=== PATIENT | female | born 1955 | race Caucasian/White ===

== ENCOUNTER → 2020-07-25 | Outpatient (CLI) | payer OTHER ==
[~2020-07-25] MED LIST: ACIDOPHILUS1 EACH PO; CEFTIN 250 MG250 MG PO; COUMADIN 5 MG TA5 M1 PO; ENOXAPARIN80 MG/0.1 SUBQ; FLAGYL500 M1 PO; FLECAINIDE ACET50 M1 PO; LEXAPRO 10 MG T10 M1 PO; MAG-OXIDE400 MG PO; POTASSIUM20 PO; PROTONIX40 M1 PO; TENORMIN25 MG PO; TOPROL XL25 MG PO
== END ==
LOC: SJCVC 13:30
PROVIDERS: ATTEND Internal Medicine Cardiovascular Disease
DX: R00.1 Bradycardia, unspecified (principal); I48.0 Paroxysmal atrial fibrillation; R55 Syncope and collapse; I49.5 Sick sinus syndrome

== ENCOUNTER → 2020-08-16 | Outpatient (CLI) | payer OTHER ==
[~2020-08-16] MED LIST changes: +ALENDRONATE SOD70 MG PO; +BYSTOLIC10 MG PO; +ELIQUIS5 MG PO; +GABAPENTIN100 MG PO; +NEURONTIN300 MG PO; +OMEPRAZOLE 20 M20 M1 PO
== END ==
LOC: SJCVCIMAG
PROVIDERS: ATTEND Internal Medicine Cardiovascular Disease
DX: I08.8 Other rheumatic multiple valve diseases (principal); I48.91 Unspecified atrial fibrillation; I48.92 Unspecified atrial flutter; I49.5 Sick sinus syndrome; Z79.899 Other long term (current) drug therapy; Z87.891 Personal history of nicotine dependence

== ENCOUNTER 2020-08-26 23:58 | Observation (INO) | payer OTHER ==
[~2020-08-26] VITALS: Ht 165.1 cm; Wt 87.1 kg
[~2020-08-26 23:58] MED LIST changes: -ALENDRONATE SOD70 MG PO; -BYSTOLIC10 MG PO; -ELIQUIS5 MG PO; -GABAPENTIN100 MG PO; -NEURONTIN300 MG PO; -OMEPRAZOLE 20 M20 M1 PO
[2020-08-26 23:59] VITALS: BP 126/70
[2020-08-27] MEDS ORDERED: ELIQUIS5 MG PO (00:11)
[2020-08-27] MEDS ORDERED: ALENDRONATE SOD70 MG PO (00:12)
[2020-08-27] MEDS ORDERED: BYSTOLIC10 MG PO (00:15)
[2020-08-27] MEDS ORDERED: OMEPRAZOLE 20 M20 M1 PO (00:16)
[2020-08-27] MEDS ORDERED: GABAPENTIN100 MG PO (00:17)
[2020-08-27] MEDS ORDERED: NEURONTIN300 MG PO (00:18)
--- NOTE | 2020-08-27 00:26 | NUR ---
RIGHT ARM BP 132/50 LEFT ARM BP 131/62
[2020-08-27 00:33] LABS: BASOPHILS 0.5 % (0.0-2.0); EOSINOPHILS 1.7 % (0.0-3.0); HEMATOCRIT 37.4 % (37.0-47.0); HEMOGLOBIN 12.5 gm/dL (12.0-15.0); LYMPHOCYTES 24.5 % (24.0-44.0); MCH 30.1 pg (26.0-34.0); MCHC 33.6 g/dL (28.0-37.0); MCV 89.7 fL (80.0-100.0); PLATELET COUNT 204 thou/uL (150-400); POLYS 65.3 % (36.0-66.0); RBC 4.17 mil/uL (4.20-5.00); RDW 13.5 % (10.5-14.5); WBC 7.7 thou/uL (4.0-11.0)
[2020-08-27 00:46] LABS: ANION GAP 10 mmol/L (7-16); BUN 20 mg/dL (7-18); CALCIUM 9.2 mg/dL (8.5-10.1); CHLORIDE 104 mmol/L (98-107); CO2 26 mmol/L (21-32); CREATININE 1.1 mg/dL (0.6-1.0); GLUCOSE 126 mg/dL (74-106); POTASSIUM 3.6 mmol/L (3.5-5.1); SODIUM 140 mmol/L (136-145)
[2020-08-27 00:56] LABS: ALBUMIN 3.3 g/dL (3.4-5.0); MAGNESIUM 1.8 mg/dL (1.8-2.4); SGOT 20 U/L (15-37); SGPT 23 U/L (30-65); TOTAL BILIRUBIN 0.3 mg/dL (0.2-1.0); TOTAL PROTEIN 6.9 g/dL (6.4-8.2); TROPONIN-I <0.06 ng/mL (<0.06)
[2020-08-27 00:57] LABS: PROTIME 10.3 Seconds (9.3-11.4)
[2020-08-27 05:51] LABS: CHOLESTEROL 160 mg/dL (<200); HDL CHOLESTEROL 35 mg/dL (>40); LDL CHOLESTEROL 100 mg/dL (<100); TC:HDL 4.6 Ratio (Not establshd); TRIGLYCERIDE 126 mg/dL (<150); VLDL 25 mg/dL (<40)
[2020-08-27 05:52] LABS: SERUM ASSESSMENT Clear
[2020-08-27 16:30] VITALS: BP 118/62
[2020-08-27 17:08] VITALS: BP 123/82
[2020-08-27 17:38] VITALS: BP 114/65
[2020-08-27 17:52] VITALS: BP 118/62
--- NOTE | 2020-08-27 19:36 | NUR ---
ASSUMED CARE OF PT AT APPROX 1745 FROM ER D/T CHEST PAIN. PT SETTLED IN ROOM, ADMISSION ASSESSMENTS, HISTORY AND EDUCATION COMPLETE. NO C/O PAIN OR DISTRESS AT THIS TIME. PLAN FOR ECHO TOMORROW. WILL CONTINUE TO MONITOR AND FOLLW POC.
[2020-08-27 20:59] VITALS: BP 111/53
[2020-08-28 00:15] VITALS: BP 135/71
[2020-08-28 02:05] LABS: GLYCOHEMOGLOBIN (HGB A1C) 6.1 % (4.8-5.6)
[2020-08-28 03:54] LABS: HEMATOCRIT 34.4 % (37.0-47.0); HEMOGLOBIN 11.5 gm/dL (12.0-15.0); MCH 30.1 pg (26.0-34.0); MCHC 33.4 g/dL (28.0-37.0); MCV 89.9 fL (80.0-100.0); RBC 3.82 mil/uL (4.20-5.00); RDW 13.4 % (10.5-14.5); WBC 4.9 thou/uL (4.0-11.0)
[2020-08-28 04:28] LABS: ANION GAP 11 mmol/L (7-16); BUN 15 mg/dL (7-18); CALCIUM 8.3 mg/dL (8.5-10.1); CHLORIDE 108 mmol/L (98-107); CO2 24 mmol/L (21-32); GLUCOSE 133 mg/dL (74-106); SODIUM 143 mmol/L (136-145); TROPONIN-I <0.06 ng/mL (<0.06)
--- NOTE | 2020-08-28 05:19 | NUR ---
PATIENT SLEPT THROUGH SOME OF THE NIGHT. A&OX4. MEDS GIVEN PER NOV. NO COMPLAINTS OF CHEST PAIN. SR ON THE MONITOR. UP AD ANAT TO BR; STEADY GAIT. ADMISSION PROCESS COMPLETE. ECHO THIS MORNING. CONTINUING TO ASSESS CLOSELY ACCORDING TO POC.
[2020-08-28 05:46] VITALS: BP 129/62
[2020-08-28 07:30] VITALS: BP 139/69
--- NOTE | 2020-08-28 10:17 | NUR ---
CONSULT [id number] WAS COMPLETED BY THIS SOCIAL INSURANCE ANALYST.
[2020-08-28 12:49] VITALS: BP 139/69
[2020-08-28 13:00] VITALS: BP 132/70
--- NOTE | 2020-08-28 13:49 | NUR ---
DISCHARGING TO HOME. DR. MACDONALD HAS SEEN. LESLIE CALLED INTO HER PHARMACY. DISCHARGE INSTRUCTIONS GIVEN.
--- NOTE | 2020-08-31 11:24 | EKG ---
[facility] [address] [place] [address] ELECTROCARDIOGRAM REPORT Name: JIMYAMILEXRENATE ALONSO Room #: 211-P [facility] Margarita HarpRVictor Hugo#: [id number] Admission: 08/27/20 Attend Phys: Jeffry Nguyen MD Discharge: 08/28/20 Date of : 53 Report #: [id number] <ELECTRONICALLY SIGNED> By: Dionte Lopez MD, FACC 08/28/20 0721 0004 0004 Dionte Lopez MD, FACC /EPI
== END 2020-08-28 14:38 | disposition home or self-care (01) ==
LOC: ER 23:58 → 2N 08-27 01:14 → EROBS 08-27 01:14 → 2N 08-27 01:14 → EROBS 08-27 09:38 → 2N 08-27 17:49
PROVIDERS: Emergency Medicine; Nurse Practitioner Family; ADMIT Internal Medicine; ATTEND Internal Medicine
DX: R07.89 Other chest pain (principal); I10 Essential (primary) hypertension; Z20.828 Contact with and (suspected) exposure to other viral communicable diseases; K21.9 Gastro-esophageal reflux disease without esophagitis; I48.91 Unspecified atrial fibrillation; G89.29 Other chronic pain; M19.90 Unspecified osteoarthritis, unspecified site; G62.9 Polyneuropathy, unspecified; Z85.3 Personal history of malignant neoplasm of breast; Z86.711 Personal history of pulmonary embolism; Z90.49 Acquired absence of other specified parts of digestive tract; Z90.710 Acquired absence of both cervix and uterus; Z87.891 Personal history of nicotine dependence
CPT/HCPCS: 10081

== ENCOUNTER → 2020-11-06 | Outpatient (CLI) | payer OTHER ==
[~2020-11-06] MED LIST changes: +ALENDRONATE SOD70 MG PO; +BYSTOLIC10 MG PO; +ELIQUIS5 MG PO; +GABAPENTIN100 MG PO; +NEURONTIN300 MG PO; +OMEPRAZOLE 20 M20 M1 PO
== END ==
LOC: LAB 08:38
PROVIDERS: ATTEND Internal Medicine Cardiovascular Disease
DX: Z01.812 Encounter for preprocedural laboratory examination (principal); Z20.822 Contact with and (suspected) exposure to COVID-19

== ENCOUNTER → 2020-11-06 | Outpatient (CLI) | payer OTHER ==
[~2020-11-06] MED LIST changes: +CALCIUM 500-VI1 EAC1 PO; +VITAMIN C500 M2 PO
== END ==
LOC: CAT 10-23 09:55
PROVIDERS: ATTEND Internal Medicine Cardiovascular Disease
DX: I48.91 Unspecified atrial fibrillation (principal); M47.814 Spondylosis without myelopathy or radiculopathy, thoracic region; Z90.49 Acquired absence of other specified parts of digestive tract

== ENCOUNTER 2020-11-10 06:35 | Observation (INO) | payer OTHER ==
[2020-11-06 10:51] LABS: HEMATOCRIT 40.2 % (37.0-47.0); HEMOGLOBIN 13.5 gm/dL (12.0-15.0); MCH 29.8 pg (26.0-34.0); MCHC 33.5 g/dL (28.0-37.0); MCV 88.9 fL (80.0-100.0); RBC 4.53 mil/uL (4.20-5.00); RDW 13.2 % (10.5-14.5); WBC 6.3 thou/uL (4.0-11.0)
[2020-11-06 11:04] LABS: CALCIUM 8.9 mg/dL (8.5-10.1); CREATININE 1.1 mg/dL (0.6-1.0)
[~2020-11-10] VITALS: Ht 165.1 cm; Wt 85.7 kg
[2020-11-10] VITALS (8 sets, daily range): BP systolic 124–139; BP diastolic 61–82
--- NOTE | ~2020-11-10 | P ---
[facility] [place] [address] PROCEDURE REPORT Name: YAMILEX FERNANDEZ Room #: 215-P [facility] M..#: [id number] Admission: 11/10/20 Attend Phys: Patric Davis MD Discharge: Date of : 53 Report #: [id number] THIS REPORT FOR: cc: FAM - Family physician unknown FAM - Family physician unknown David Davis MD ~ DATE OF SERVICE: 11/10/2020 PREOPERATIVE DIAGNOSES: 1. Atrial fibrillation. 2. Atrial flutter. POSTOPERATIVE DIAGNOSES: 1. Atrial fibrillation, atrial flutter. 2. Focal atrial tachycardia. HISTORY: The patient is a 64-year-old female with a history of recurrent paroxysmal atrial fibrillation. She was previously on flecainide therapy, but developed significant sick sinus syndrome, for this and this was discontinued. She is here for AFib ablation. PROCEDURES PERFORMED: 1. Atrial fibrillation ablation, CPT code 05791. 2. 3D mapping, CPT code 48527. 3. Intracardiac echo, CPT code 24593. 4. Focal ablation, CPT code 94917. 5. Second pathway ablation, CPT code 00214. ANESTHESIA: The patient underwent general anesthesia. No anesthesia related complications. DESCRIPTION OF PROCEDURE: The patient with informed consent, we discussed the details of the procedure including the risks, which include but not limited to bleeding, vascular damage, cardiac perforation, stroke and VA. She understood these risks and was willing to proceed. The patient was brought to the EP laboratory in a fasting nonsedated state, prepped and draped in a sterile fashion. I obtained access to the right femoral vein x 3, placing an 8, 9 and 7-Danish short sheath and under fluoroscopy I placed a decapolar catheter using the coronary sinus and ICE catheter into the right atrium. Using intracardiac ultrasound, I created a 3D geometry of the left atrium. This was merged with the cardiac CT scan. The patient had evidence of 2 left and 2 right pulmonary veins. Next, the patient was systemically heparinized. The transseptal was performed using SL1 sheath and a [place] needle and this was straightforward. I then exchanged for the [facility] [address] [place] [address] PROCEDURE REPORT Name: YAMILEX FERNANDEZ Room #: 215-P [facility] Margarita [place]#: [id number] Admission: 11/10/20 Attend Phys: Patric Davis MD Discharge: Date of : 53 Report #: [id number] sheath, placed this in the left atrium. Via the Lasso catheter, we created a detailed 3D geometry of the left atrium and then we started isolating the pulmonary veins. The left superior pulmonary vein underwent a 4-minute, followed by 3-minute freeze and the vein isolated at 26 seconds during the second freeze. Left inferior pulmonary vein underwent a 4-minute freeze isolating in 30 seconds. The right superior pulmonary vein underwent a 3-minute freeze and isolated at 35 seconds. The right inferior pulmonary vein underwent a 150-second freeze and isolated at 35 seconds and we came off early because of the cool temps. I then created a 3D geometry of the left atrium and as we were creating this, we showed that there was now isolation of all 4 pulmonary veins, but the patient went into an atrial tachycardia. This was slow at about 570 milliseconds, but it would terminate with catheter manipulation and then was easily inducible with atrial burst pacing. 3D MAPPING AND ABLATION OF FOCAL ATRIAL TACHYCARDIA: Next, we decided to map this atrial tachycardia. We started by mapping on the left atrium. It was clearly late at this site. Therefore, I went to the right atrium with the Lasso catheter and we were quickly able to show that there was a nice sal tachycardia at this location. It would terminate when I would manipulate my catheter at this region, but was easily re-inducible either with pacing or would induce itself. Therefore, I took a [employer] Thermo[employer] ablation catheter at the earliest site and ablation was performed at 35 cook. At the first site of ablation, there was termination. I performed additional ablation all along this region as there were fractionated atrial signals at this location. Therefore, a post-ablation EP study was performed. Aggressive atrial burst pacing was performed down to 300 milliseconds and this atrial tachycardia was rendered non-inducible. ATRIAL FLUTTER ABLATION: Given the patient's history of prior atrial flutter, we decided to perform atrial flutter ablation along the cavotricuspid isthmus, ablation was performed at 40 cook, continuous drag lesion was performed and a transisthmus conduction time changed from 60 to 100 milliseconds. Additional ablation was performed could not get it to stretch out more than this. As such, the procedure was concluded. Using intracardiac ultrasound, I verified there was no pericardial effusion and then catheters and sheaths were pulled out after the patient received systemic protamine. Hemostasis was obtained. The patient awoke neurologically and hemodynamically intact. No complications. No significant bleeding. CONCLUSIONS: 1. Successful atrial fibrillation ablation with isolation of the pulmonary veins. 2. Successful ablation of a focal atrial tachycardia arising from the mid [facility] [address] [place] [address] PROCEDURE REPORT Name: YAMILEX FERNANDEZ Room #: 215-P [facility] LoydVictor Hugo#: [id number] Admission: 11/10/20 Attend Phys: Patric Davis MD Discharge: Date of : 53 Report #: [id number] sal terminalis just lateral to the right atrial appendage. 3. Successful atrial flutter ablation. By: 1158 192 David Davis MD /nt
[~2020-11-10 06:35] MED LIST changes: -CALCIUM 500-VI1 EAC1 PO; -VITAMIN C500 M2 PO
[2020-11-10 07:25] LABS: BASOPHILS 0.4 % (0.0-2.0); PLATELET COUNT 211 thou/uL (150-400)
[2020-11-10 07:26] LABS: ABSOLUTE NEUTROPHILS 5.3 thou/uL (1.4-8.2); HEMATOCRIT 41.9 % (37.0-47.0); HEMOGLOBIN 13.9 gm/dL (12.0-15.0); LYMPHOCYTES 27.3 % (24.0-44.0); MCH 29.6 pg (26.0-34.0); MCHC 33.2 g/dL (28.0-37.0); MCV 89.2 fL (80.0-100.0); MONOCYTES 8.1 % (1.0-8.0); POLYS 62.2 % (36.0-66.0); RDW 13.4 % (10.5-14.5); WBC 8.5 thou/uL (4.0-11.0)
[2020-11-10 07:36] LABS: CREATININE 1.3 mg/dL (0.6-1.0)
[2020-11-10 07:42] LABS: ALBUMIN 3.6 g/dL (3.4-5.0); TOTAL BILIRUBIN 0.4 mg/dL (0.2-1.0); TOTAL PROTEIN 7.2 g/dL (6.4-8.2)
[2020-11-10 08:01] LABS: PROTIME 9.5 Seconds (9.3-11.4)
--- NOTE | 2020-11-10 13:35 | EKG ---
[place] [address] [facility] [place] [address] ELECTROCARDIOGRAM REPORT Name: YAMILEX FERNANDEZ [facility] [id number] Admission: 11/10/20 Attend Phys: Patric Davis MD Discharge: Date of : 53 Report #: [id number] [facility] Test Date: 2020-11-10 Test Time: 12:57:11 Pat Name: YAMILEX FERNANDEZ Department: Room: Gender: F Senior Cost Estimator: : 1955 Requested By: Patric Davis Order Number: [id number] MD: Dionte Lopez Measurements Intervals [place] Rate: 77 P: 67 ID: 188 QRS: -18 QRSD: 98 T: 179 QT: 410 QTc: 465 Interpretive Statements Sinus rhythm Borderline left axis deviation Abnormal R-wave progression, early transition Abnrm T, consider ischemia, anterolateral lds Compared to ECG 08/27/2020 00:04:11 Possible ischemia now present Atrial premature complex(es) no longer present T-wave abnormality no longer present Electronically Signed On 11-10-2020 13:35:04 BARBER SHOP MANAGER by Dionte Lopez [email or web address] <ELECTRONICALLY SIGNED> By: Dionte Lopez MD, FACC 11/10/20 1335 1257 1257 Dionte Lopez MD, [facility] /EPI
[2020-11-10] MEDS ORDERED: CALCIUM 500-VI1 EAC1 PO (15:32)
[2020-11-10] MEDS ORDERED: VITAMIN C500 M2 PO (15:32)
--- NOTE | 2020-11-10 19:30 | NUR ---
PT. ARRIVED AT THE FLOOR AROUND AROUND 1500; PT. AOXE; NO C/O PAIN; SR ON THE MONITOR; ON BED REST; EDUCATED ABOUT BED REST UNTIL 1730; [facility]; EDUCATED ABOUT HOLDING PRESSURE IF COUGHING; [facility]; EDUCATED ABOUT GOALS THROUGH THE AFTERNOON; [facility]; D/C [place] AT 1800; EDUCATED ABOUT CALLING BEFORE GETTING UP FROM BED THE FIRST TIME SINCE BEING ON BED REST FOR LONG TIME; [facility]; ADMISSION PERFORMED; ASSESSMENT CHARGED; FOLLOWING POC; PASSED ON REPORT;
[2020-11-11 00:18] VITALS: BP 120/74
[2020-11-11 04:54] VITALS: BP 119/52
[2020-11-11 08:05] VITALS: BP 107/69
[2020-11-11 10:21] VITALS: BP 107/69
--- NOTE | 2020-11-11 11:29 | NUR ---
ASSUMED CARE SHIFT CHANGE. ASSESSMENT CHARTED.MEDS GIVEN DENIES PAIN. R GROIN SITE CDI NO HEMATOMA. DC INSTRUCTIONS REVIEWED WITH PT COMMUNICATES UNDERSTANDING. PT LEFT UNIT WITH ALL BELONGINGS.
--- NOTE | 2020-11-12 14:08 | EKG ---
[address] [address] ELECTROCARDIOGRAM REPORT Name: YAMILEX FERNANDEZ Room #: 215-[facility]#: [id number] Admission: 11/10/20 Attend Phys: Patric Davis MD Discharge: 11/11/20 Date of : 53 Report #: [id number] [facility] Test Date: 2020-11-11 Test Time: 07:15:13 Pat Name: YAMILEX FERNANDEZ Department: Room: [facility] Gender: F Die Hardener: LUL : 1955 Requested By: Patric Davis Order Number: [id number] MD: Bryant Elam Measurements Intervals [place] Rate: 79 P: 72 WV: 204 QRS: -1 QRSD: 97 T: 144 QT: 476 QTc: 546 Interpretive Statements Sinus rhythm Abnormal R-wave progression, early transition Nonspecific T abnrm, anterolateral leads Prolonged QT interval Compared to ECG 11/10/2020 12:57:11 Prolonged QT interval now present T wave abnormality is less pronounced Electronically Signed On 11-12-2020 14:07:54 ASSEMBLER TESTER by Bryant Elam [email or web address] <ELECTRONICALLY SIGNED> By: Bryant Elam MD, [facility] 11/12/20 1407 4 Bryant Elam MD, [facility] /EPI
== END 2020-11-11 11:00 | disposition home or self-care (01) ==
LOC: CATH 06:35 → 2N 15:18
PROVIDERS: ADMIT Internal Medicine Cardiovascular Disease; ATTEND Internal Medicine Cardiovascular Disease
DX: I48.91 Unspecified atrial fibrillation (principal); I48.92 Unspecified atrial flutter; K21.9 Gastro-esophageal reflux disease without esophagitis; I11.0 Hypertensive heart disease with heart failure; R55 Syncope and collapse; F17.200 Nicotine dependence, unspecified, uncomplicated; Z86.711 Personal history of pulmonary embolism; Z79.01 Long term (current) use of anticoagulants; Z79.899 Other long term (current) drug therapy
CPT/HCPCS: 62110; 62900; 70005

== ENCOUNTER → 2021-03-30 | Outpatient (CLI) | payer OTHER ==
[~2021-03-30] MED LIST changes: +CALCIUM 500-VI1 EAC1 PO; +VITAMIN C500 M2 PO
--- NOTE | 2021-04-03 13:43 | P ---
[facility] Tanya [place] [address] PROCEDURE REPORT Name: YAMILEX FERNANDEZ Room #: [facility]#: [id number] Admission: 03/30/21 Attend Phys: Patric Davis MD Discharge: Date of : 53 Report #: [id number] THIS REPORT FOR: cc: OTIS CONTRERAS [facility] - family physician/PCP Patric Davis MD ~ DATE OF SERVICE: 03/30/2021 PREOPERATIVE DIAGNOSIS: Presyncope. POSTOPERATIVE DIAGNOSIS: Presyncope. PROCEDURE: Implantable loop recorder insertion. DESCRIPTION OF PROCEDURE: The patient underwent informed consent. She was prepped and draped in a standard fashion. I injected lidocaine at the incision site. Incision was made. Device injected, tested and found to be functioning normally. A single suture was performed. Surgical glue and a dressing was placed. There were no procedural-related complications. Implanted device was a Medtronic model number 90597, serial number [id number]. CONCLUSION: Successful implantation of implantable loop recorder. <ELECTRONICALLY SIGNED> By: Patric Davis MD 04/03/21 1343 1001 2332 Patric Davis MD /nt
== END | disposition home or self-care (01) ==
LOC: CATH 07:16
PROVIDERS: ATTEND Internal Medicine Cardiovascular Disease
DX: R55 Syncope and collapse (principal); Z79.899 Other long term (current) drug therapy; Z79.01 Long term (current) use of anticoagulants; Z91.041 Radiographic dye allergy status

== ENCOUNTER 2021-04-04 13:54 | Inpatient (IN) | payer OTHER ==
[~2021-04-04] VITALS: Ht 165.1 cm; Wt 83.6 kg
--- NOTE | ~2021-04-04 | EMS ---
[address] [address] EMS Patient Care Report Name: YAMILEX FERNANDEZ Room #: REG JOSE [place]#: [id number] Admission: 04/04/21 Attend Phys: Discharge: Date of : 53 Report #: [id number] THIS REPORT FOR: //name// Report Transmitted: 04/04/2021 15:01 EMS Care Summary [facility] MED-ACT Incident -[id number] @ 04/04/2021 13:18 Incident Location [address] [place] [address] Patient YAMILEX FERNANDEZ Female, 65 Years 1955 Patient Address [address] [place] [address] Patient History Syncope,Atrial Fibrillation, Patient Allergies No known allergies, Patient Medications None Reported, Chief Complaint I have a pressure on my chest Disposition Transported No Lights/Nitro Dispatch Reason Chest Pain (Non-Traumatic) Transported To [facility] Narrative Arrived on scene to find a 65 y/o female who was sitting on a clinic chair located in exam room of orthopedic facility. on scene reports that the pt [facility] [address] [place] [address] EMS Patient Care Report Name: YAMILEX FERNANDEZ Room #: REG Rubén#: [id number] Admission: 04/04/21 Attend Phys: Discharge: Date of : 53 Report #: [id number] came in today for a knee brace and while walking into the facility and taking a seat in the waiting area, she had a syncopal episode which lasted approximately 15 seconds. Pt regained consciousness and began to c/o intense chest pressure that affected her anterior chest and her upper left and right abdominal quadrants. Pt then proceeded to vomit. Pt agreed with hx provided to EMS by facility MD. Pt reports that she suffer from A-fib and that she recently had an implanted cardiac monitoring device placed due to her A-fib and a recent hx of syncope. Pt denied any hx of AMI and also denied any recent episodes of chest pressure and or discomfort. Pt reports that her current chest pressure feels as if a robe is being tighten around her chest. Pt rated her chest pressure at a 10/10. Pt denied any current SOA, dizziness, abdominal pain, increased weakness, or any radiation of said chest discomfort. Pt's 12 lead showed no acute changes and her VS remained stable through out. Pt was transported to ED for further eval and tx. See assessment tab, VS tab, and flow chart for assessments. interventions, times and trends. Initial Vitals @13:44P: 56,BP: 140/80,SpO2: 100, @13:33P: 61,BP: 153/89, @13:28P: 55,SpO2: 99,RI Suspected: false @13:39P: 59,SpO2: 99,RI Suspected: false @13:50P: 52,R: 16,BP: 103/77,Pain: 10/10,GCS: 15,SpO2: 100,Revised Trauma: 12, @13:25P: 57,R: 18,BP: 122/82,GCS: 15,Temp: 98.1F,Glucose: 105,SpO2: 100,Revised Trauma: 12, Assessments @13:25MENTAL:Person Oriented,Time Oriented,Place Oriented,Event Oriented,SKIN:HEENT:Head/Face: No Abnormalities,LUNG SOUNDS:General: No Abnormalities,ABDOMEN:General: No Abnormalities,PELVIS//GI:EXTREMITIES:PULSE:NEURO: Impression Chest Pain / Discomfort Procedures @13:2812-Lead ECG@13:30Saline Lock 10cc (20 ga) Site: Antecubital-LeftResponse: UnchangedSucceeded@13:27Aspirin - 324 Milligrams (mg) - OralResponse: Unchanged@13:32Fentanyl - 50 Micrograms (mcg) - Intravenous (IV)Response: Improved@13:31Ondansetron - 4 Milligrams (mg) - Intravenous (IV)Response: Improved@13:38Fentanyl - 50 Micrograms (mcg) - Intravenous (IV)Response: Improved@13:45Fentanyl - 50 Micrograms (mcg) - Intravenous (IV)Response: Improved@PTASurgical Mask on Patient Timeline [address] [address] EMS Patient Care Report Name: YAMILEX FERNANDEZ Room #: RASHAD [place]#: [id number] Admission: 04/04/21 Attend Phys: Discharge: Date of : 53 Report #: [id number] EARLY EDUCATION TEACHER,Surgical Mask on Patient, 13:16,Call Received 13:16,Psap Call 13:18,Dispatched 13:18,En Route 13:21,On Scene 13:24,At Patient 13:25,BP: 122/82 M,PULSE: 57,RR: 18 R,SPO2: 100 Ox,ETCO2: ,B,PAIN: ,GCS: 15, 13:27,Aspirin - 324 Milligrams (mg) - Oral,Response: Unchanged 13:28,12-Lead ECG, 13:28,BP: / M,PULSE: 55,RR: R,SPO2: 99 Ox,ETCO2: ,BG: ,PAIN: ,GCS: , 13:30,Saline Lock 10cc 20 ga Site: Antecubital-Left,Response: UnchangedSucceeded, 13:31,Ondansetron - 4 Milligrams (mg) - Intravenous (IV),Response: Improved 13:32,Fentanyl - 50 Micrograms (mcg) - Intravenous (IV),Response: Improved 13:33,BP: 153/89 M,PULSE: 61,RR: R,SPO2: Ox,ETCO2: ,BG: ,PAIN: ,GCS: , 13:38,Fentanyl - 50 Micrograms (mcg) - Intravenous (IV),Response: Improved 13:39,BP: / M,PULSE: 59,RR: R,SPO2: 99 Ox,ETCO2: ,BG: ,PAIN: ,GCS: , 13:41,Depart Scene 13:44,BP: 140/80 M,PULSE: 56,RR: R,SPO2: 100 Ox,ETCO2: ,BG: ,PAIN: ,GCS: , 13:45,Fentanyl - 50 Micrograms (mcg) - Intravenous (IV),Response: Improved 13:49,At Destination 13:50,BP: 103/77 M,PULSE: 52,RR: 16 R,SPO2: 100 Ox,ETCO2: ,BG: ,PAIN: 10,GCS: 15, 14:11,Call Closed Disclaimer v1.1 Copyright 2020 [employer] This EMS Care Summary contains data elements from the applicable legal record (which may be displayed differently). It is designed to provide pertinent information for the following purposes: continuity of care, clinical quality, and state data reporting. The complete legal record is available to ED staff and administrators of the receiving hospital in [employer] Patient Tracker. All data is provided "as is."
--- NOTE | ~2021-04-04 | P ---
[facility] [place] [address] PROCEDURE REPORT Name: YAMILEX FERNANDEZ Room #: 211-P [facility] ..#: [id number] Admission: 04/04/21 Attend Phys: Jeffry Nguyen MD Discharge: 04/07/21 Date of : 53 Report #: [id number] THIS REPORT FOR: cc: OTIS CONTRERAS MD Physician not on staff Patric Davis MD ~ PROCEDURE: Pacemaker implantation and loop recorder removal. PREOPERATIVE DIAGNOSES: 1. Syncope. 2. Sick sinus syndrome. HISTORY: The patient is a 65-year-old female with history of atrial fibrillation, status post ablation, recently had been having presyncopal symptoms, underwent implantation of a loop recorder; less than a week later, she had a witnessed syncopal episode with associated sinus conrado down into the 20s. She is here for pacemaker implantation and implantable loop recorder removal. ANESTHESIA: The patient underwent MAC anesthesia with no anesthesia related complications. DESCRIPTION OF PROCEDURE: The patient underwent informed consent. We discussed the details of the procedure including the risks, which include but not limited to bleeding, infection, vascular damage, cardiac perforation, pneumothorax. She understood these risks and is willing to proceed. The patient was brought to the EP laboratory in fasting and sedated state, prepped and draped in a sterile fashion, underwent venogram showing patency of left axillary vein and received IV antibiotics prior to initiation of the procedure. Next, lidocaine was injected below the level of left clavicle. Incision was made, pocket created over the prepectoral fascia and access was obtained twice to left axillary vein using the extrathoracic approach. Sheaths were positioned using the modified Seldinger technique. Leads were positioned in the right ventricle, right atrial appendage, both with adequate pacing and sensing thresholds. Leads were sutured to the prepectoral fascia using Ethibond suture. Leads were connected to the device. Tug test performed. Pocket was irrigated with vancomycin. The pocket was closed in 2 layers. Surgical glue was placed to outer skin layer. The patient awoke neurologically and hemodynamically intact. No complications. No significant bleeding. The implantable loop recorder was then removed. I injected this with lidocaine. A small incision was made. The device was removed and a suture was placed and the dressing was placed as well. The implanted pacemaker was a Propers, model number W3DR01, serial number [id number]. The atrial lead was a 5076, 45 cm, serial number [id number]. The ventricular lead was a 5076, 52 cm, serial number [id number]. Atrial lead demonstrated a P-wave of 5.5 millivolts, pacing [facility] [address] [place] [address] PROCEDURE REPORT Name: FERNANDEZYAMILEX Room #: 211-P [facility] M.R.#: [id number] Admission: 04/04/21 Attend Phys: Jeffry Nguyen MD Discharge: 04/07/21 Date of : 53 Report #: [id number] impedance of 900 ohms, pacing threshold of 1 volt at 0.5 milliseconds. The RV lead demonstrated R waves of 9.1 millivolts, pacing impedance 920 ohms and a pacing threshold of 0.7 volts at 0.4 milliseconds. The device was programmed to the DDDR 60-130 mode. CONCLUSION: 1. Successful pacemaker implantation. 2. Satisfactory atrial and ventricular pacing and sensing thresholds. 3. Successful explantation of a loop recorder. By: 1122 [id number] Patric Davis MD /nt
[2021-04-04 13:54] VITALS: BP 154/72
--- NOTE | 2021-04-04 14:42 | EKG ---
[place] [address] [facility] [address] ELECTROCARDIOGRAM REPORT Name: YAMILEX FERNANDEZ [facility] [id number] Admission: 04/04/21 Attend Phys: Discharge: Date of : 53 Report #: [id number] [facility] ED Test Date: 2021-04-04 Test Time: 14:17:29 Pat Name: YAMILEX FERNANDEZ Department: Room: Gender: F Blow Mold Machine Operator: ileana : 1955 Requested By: Adeel Tran Order Number: [id number] MD: Dionte Lopez Measurements Intervals [place] Rate: 50 P: 55 SD: 193 QRS: -16 QRSD: 106 T: 59 QT: 485 QTc: 443 Interpretive Statements Sinus rhythm Borderline left axis deviation RSR' in V1 or V2, right VCD or RVH Baseline wander in lead(s) V3 Compared to ECG 11/11/2020 07:15:13 Right ventricular hypertrophy now present RSR' in V1 or V2 now present Prolonged QT interval no longer present Electronically Signed On 04-04-2021 14:42:33 CDT by Dionte Lopez [email or web address] <ELECTRONICALLY SIGNED> By: Dionte Lopez MD, FAC 04/04/21 1442 1417 1417 Dionte Lopez MD, [facility] /EPI
[2021-04-04 14:51] LABS: ABSOLUTE NEUTROPHILS 6.9 thou/uL (1.4-8.2); BASOPHILS 0.3 % (0.0-2.0); EOSINOPHILS 0.6 % (0.0-3.0); HEMATOCRIT 42.4 % (37.0-47.0); HEMOGLOBIN 14.5 gm/dL (12.0-15.0); LYMPHOCYTES 30.9 % (24.0-44.0); MCH 30.1 pg (26.0-34.0); MCHC 34.1 g/dL (28.0-37.0); MCV 88.1 fL (80.0-100.0); MONOCYTES 6.5 % (1.0-8.0); PLATELET COUNT 225 thou/uL (150-400); POLYS 61.7 % (36.0-66.0); RBC 4.82 mil/uL (4.20-5.00); RDW 13.2 % (10.5-14.5); WBC 11.1 thou/uL (4.0-11.0)
[2021-04-04 15:06] LABS: ANION GAP 9 mmol/L (7-16); BUN 17 mg/dL (7-18); CALCIUM 9.2 mg/dL (8.5-10.1); CHLORIDE 102 mmol/L (98-107); CO2 28 mmol/L (21-32); CREATININE 1.1 mg/dL (0.6-1.0); GLUCOSE 123 mg/dL (74-106); POTASSIUM 4.2 mmol/L (3.5-5.1); SODIUM 139 mmol/L (136-145)
[2021-04-04 15:15] LABS: APTT 24.2 Seconds (24.5-32.8); INR 0.98; PROTIME 10.7 Seconds (10.5-12.1)
[2021-04-04 15:18] LABS: ALBUMIN 3.7 g/dL (3.4-5.0); LIPASE 117 U/L (73-393); SGOT 42 U/L (15-37); SGPT 31 U/L (14-59); TOTAL BILIRUBIN 0.6 mg/dL (0.2-1.0); TOTAL PROTEIN 7.3 g/dL (6.4-8.2); TROPONIN-I <0.06 ng/mL (<0.06)
[2021-04-04 15:28] LABS: D-DIMER < 0.19 ug/mLFEU (0.19-0.50)
[2021-04-04 18:00] VITALS: BP 146/65
--- NOTE | 2021-04-04 18:22 | NUR ---
PT ORIENTED TO ROOM AND UNIT, BED LOW AND LOCKED, SIDE RAILS UPX3, CALL LIGHT IN REACH, TELE APPLIED. WILL CONTINUE TO ASSESS.
[2021-04-04 18:30] VITALS: BP 150/82
[2021-04-04 20:15] VITALS: BP 126/66
[2021-04-05 03:20] LABS: ABSOLUTE NEUTROPHILS 5.2 thou/uL (1.4-8.2); BASOPHILS 0.2 % (0.0-2.0); EOSINOPHILS 1.4 % (0.0-3.0); HEMATOCRIT 38.7 % (37.0-47.0); HEMOGLOBIN 13.2 gm/dL (12.0-15.0); LYMPHOCYTES 23.2 % (24.0-44.0); MCH 30.2 pg (26.0-34.0); MCHC 34.2 g/dL (28.0-37.0); MCV 88.2 fL (80.0-100.0); MONOCYTES 8.1 % (1.0-8.0); PLATELET COUNT 185 thou/uL (150-400); POLYS 67.1 % (36.0-66.0); RBC 4.39 mil/uL (4.20-5.00); RDW 13.9 % (10.5-14.5); WBC 7.8 thou/uL (4.0-11.0)
[2021-04-05 03:48] LABS: CALCIUM 8.1 mg/dL (8.5-10.1); MAGNESIUM 2.2 mg/dL (1.8-2.4); POTASSIUM 4.2 mmol/L (3.5-5.1)
--- NOTE | 2021-04-05 04:02 | NUR ---
ABDOMINAL PAIN RESOLVED AFTER FAMOTIDINE AND CRACKERS GIVEN.PATIENT NPO AFTER MIDNIGHT FOR A POSIBLE PROCEDURE.MONITOR SHOWS SB.POC CONTINUED.
[2021-04-05 04:45] VITALS: BP 138/73
[2021-04-05 08:00] VITALS: BP 118/63
--- NOTE | 2021-04-05 10:52 | 2DMMODE ---
[facility] [place] [address] 2 D/M-MODE ECHOCARDIOGRAM Name: YAMILEX FERNANDEZ Room #: 211-P ADM IN [facility].#: [id number] Admission: 04/04/21 Attend Phys: Jeffry Nguyen MD Discharge: Date of : 53 Report #: [id number] THIS REPORT FOR: cc: OTIS CONTRERAS MD Physician not on staff Bryant Elam MD [facility] ~ APPROVED REPORT Study performed: 04/05/2021 09:33:51 EXAM: Comprehensive 2D, Doppler, and color-flow Echocardiogram Patient Location: In-Patient Room #: 211 Status: routine BSA: 1.93 HR: 57 bpm BP: 138/73 mmHg Rhythm: NSR Other Information Study Quality: Adequate Risk Factors: Cardiac Risk Factors: HTN Indications Atrial Fibrillation Bradycardia Syncope Hypertension/HDD 2D Dimensions RVDd: 29.06 mm IVSd: 10.94 (7-11mm) LVOT Diam: 21.89 (18-24mm) LVDd: 42.11 mm PWd: 12.11 (7-11mm) Ascending Ao: 36.29 (22-36mm) LVDs: 32.59 (25-40mm) Left Atrium: 36.31 (27-40mm) Aortic Root: 28.98 mm Volumes Left Atrial Volume (Systole) Single Plane 4CH: 65.42 mL Single Plane 2CH: 36.83 mL Biplane LA Volume: 56.00 mL LA ESV Index: 29.00 mL/m2 [facility] [address] [place] [address] 2 D/M-MODE ECHOCARDIOGRAM Name: YAMILEX FERNANDEZ Tiffanie Room #: 211-P [facility] IN ..#: [id number] Admission: 04/04/21 Attend Phys: Jeffry Nguyen, Discharge: Date of : 53 Report #: [id number] Aortic Valve AoV Peak Teofilo.: 1.25 m/s AO Peak Gr.: 6.26 mmHg LVOT Max P.64 mmHg LVOT Max V: 1.08 m/s MARK Vmax: 3.24 cm2 Mitral Valve E/A Ratio: 1.4 MV Decel. Time: 3982.23 ms MV E Max Teofilo.: 0.39 m/s MV A Teofilo.: 0.28 m/s MV PHT: 1154.85 ms MVA (PHT): 2.89 cm2 IVRT: 69.20 ms Pulmonary Valve PV Peak Teofilo.: 0.77 m/s PV Peak Gr.: 2.40 mmHg IL End Vmax: 1.02 m/s Pulmonary Vein P Vein S: 0.43 m/s P Vein A: 0.20 m/s P Vein D: 0.36 m/s P Vein A Dur.: 133.8 msec P Vein S/D Ratio: 1.19 Tricuspid Valve TR Peak Teofilo.: 2.45 m/s RAP Estimate: 7.00 mmHg TR Peak Gr.: 23.98 mmHg RVSP: 31.00 mmHg Left Ventricle The left ventricle is normal size. There is normal LV segmental wall motion. Mild concentric left ventricular hypertrophy. Left ventricular systolic function is normal. The left ventricular ejection fraction is within the normal range. LVEF 55%. Right Ventricle The right ventricle is normal size. The right ventricular systolic function is normal. Atria The left atrium size is normal. The right atrium size is normal. Aortic Valve The aortic valve is normal in structure. No aortic regurgitation is present. There is no aortic valvular stenosis. [facility] [address] [place] [address] 2 D/M-MODE ECHOCARDIOGRAM Name: YAMILEX FERNANDEZ Room #: 211-P [facility] IN [facility].#: [id number] Admission: 04/04/21 Attend Phys: Jeffry Nguyen, Discharge: Date of : 53 Report #: [id number] Mitral Valve The mitral valve is normal in structure. Mild mitral regurgitation. No evidence of mitral valve stenosis. Tricuspid Valve The tricuspid valve is normal in structure. Mild tricuspid regurgitation. Pulmonary artery pressure of 30 mmHg Pulmonic Valve The pulmonary valve is normal in structure. Moderate pulmonic regurgitation. Great Vessels The aortic root is normal in size. IVC is normal in size and collapses >50% with inspiration. Pericardium Trace pericardial effusion. There is no pleural effusion. <Conclusion> Left ventricular systolic function is normal. There is normal LV segmental wall motion. LVEF 55%. The aortic valve is normal in structure. No aortic regurgitation or stenosis The mitral valve is normal in structure. Mild mitral regurgitation. Moderate pulmonic regurgitation. Pulmonary artery pressure of 30 mmHg Trace pericardial effusion. <ELECTRONICALLY SIGNED> By: Bryant Elam MD, FACC 04/05/211051 51 51 Bryant Elam MD, FACC /INF
--- NOTE | 2021-04-05 11:40 | NUR ---
ORDERS RECEIVED FOR EVAL AND TREAT. SPOKE WITH Pt WHO STATES SHE HAD NO DIFFICULTY WITH MOBILITY AND WAS JUST UP WITH [facility]. AND THEY DISCHARGED HER FROM THEIR SERVICES. Pt DECLINING FORMAL P.T. EVAL STATING SHE FEELS STEADY ON HER FEET. Pt SOUNDS SAFE FOR HOME WHEN MEDICALLY CLEAR PER [facility]. NOTE
[2021-04-05 12:00] VITALS: BP 112/58
[2021-04-05 16:32] VITALS: BP 111/60
--- NOTE | 2021-04-05 16:53 | NUR ---
PT UP AROUND ROOM AND REMAINED ON ROOM AIR. PT WILL BE NPO AFTER MIDNIGHT FOR PPM IN THE AM. START NEW IV PER PT REQUEST. WILL CONTINUE TO ASSESS.
[2021-04-05 19:11] VITALS: BP 114/60
[2021-04-06] VITALS (12 sets, daily range): BP systolic 113–128; BP diastolic 55–72
--- NOTE | 2021-04-06 04:42 | NUR ---
PT IS ALERT AND OREINTED X4. PLEASANT NPO SINCE MIDNIGHT FOR PACEMAKER PLACMENT IN AM PER CARDIOLOGY. LUNGS ARE CLEAR ON ROOM AIR. ABDOMEN IS SOFT BOWEL SOUNDS PRESENT. PT AWARE OF AM PROCEDURE THIS MORNING. WILL CONTINUE TO MONTIOR AND ASSESS. CALL LIGHT WITHIN REACH IF NEEDS ASSISTANCE PER STAFF.
--- NOTE | 2021-04-06 07:34 | NUR ---
PT GAVE HER TWO SILVER RINGS TO FEMALE FAMILY MEMBER IN ROOM .
--- NOTE | 2021-04-06 20:40 | NUR ---
PT HAD LEFT UPPER CHEST PACEMAKER PLACEMENT TODAY. PT ARRIVED BACK TO ROOM AT 1300. PT C/O PAIN IN INCISION AREA AND LEFT SHOULDER AND LEFT LYMPY NODES. PT WAS GIVEN PO TYLENOL ORDER AND HAD LITTLE PAIN RELIEF. DR. CLARK WAS NOTIFIED AND HE STATED HE WILL ROUND ON PT SOON AND WILL ADD ADDITIONAL PAIN MEDICATION. DR. CLARK ROUNDED ON PT AT SHIFT CHANGE AND ENTERED NEW MEDICATION ORDERS. NIGHT RN GIVEN REPORT AND MADE AWARE OF NEW ORDERS.
[2021-04-07 00:08] VITALS: BP 124/77
[2021-04-07 06:18] VITALS: BP 138/78
--- NOTE | 2021-04-07 06:46 | NUR ---
ASSESSMENT COMPLETED DOCUMENTED.PT BEEN RESTING IN NO ACUTE DISTRESS.S/P PACEMAKER PLACEMENT.IMMOBILIZER TO LEFT ARM IN PLACE.PACEMAKER INCISION INTACT.PT C/O SORENESS TO LEFT SHOULDER THAT WAS CONTROLLED WITH PAIN MEDS.BR OVER THE NOC.POSSIBLE DISCHARGE TO HOME TODAY.
[2021-04-07 07:30] VITALS: BP 123/71
[2021-04-07 11:25] VITALS: BP 119/66
[2021-04-07 13:00] VITALS: BP 123/71
== END 2021-04-07 13:19 | disposition home or self-care (01) | DRG 243 ==
LOC: ER 13:54 → 2N 16:49 → EROBS 16:49 → 2N 18:00
PROVIDERS: Emergency Medicine; Nurse Practitioner; ADMIT Internal Medicine; ATTEND Internal Medicine
PROC: 0JPT02Z Removal of Monitoring Device from Trunk Subcutaneous Tissue and Fascia, Open Approach (ICD-10-PCS; principal; 2021-04-06)
PROC: 02H63JZ Insertion of Pacemaker Lead into Right Atrium, Percutaneous Approach (ICD-10-PCS; principal; 2021-04-06)
PROC: 0JH606Z Insertion of Pacemaker, Dual Chamber into Chest Subcutaneous Tissue and Fascia, Open Approach (ICD-10-PCS; principal; 2021-04-06)
PROC: 02HK3JZ Insertion of Pacemaker Lead into Right Ventricle, Percutaneous Approach (ICD-10-PCS; principal; 2021-04-06)
DX: I49.5 Sick sinus syndrome (principal); I48.92 Unspecified atrial flutter; D68.59 Other primary thrombophilia; I47.1 Supraventricular tachycardia; K21.9 Gastro-esophageal reflux disease without esophagitis; I10 Essential (primary) hypertension; G62.9 Polyneuropathy, unspecified; I48.0 Paroxysmal atrial fibrillation; Z20.822 Contact with and (suspected) exposure to COVID-19; R10.13 Epigastric pain; N19 Unspecified kidney failure; Z79.01 Long term (current) use of anticoagulants; Z86.711 Personal history of pulmonary embolism; Z90.710 Acquired absence of both cervix and uterus; Z90.49 Acquired absence of other specified parts of digestive tract; Z91.041 Radiographic dye allergy status; Z87.891 Personal history of nicotine dependence; Z86.010 Personal history of colon polyps
CPT/HCPCS: 10081; 62110; 62900; 70005

== ENCOUNTER → 2021-05-02 | Outpatient (CLI) | payer OTHER | LOC: SJCVC 15:38 | PROVIDERS: ATTEND Internal Medicine Cardiovascular Disease | DX: I48.0 Paroxysmal atrial fibrillation (principal); R55 Syncope and collapse; I49.5 Sick sinus syndrome; K21.9 Gastro-esophageal reflux disease without esophagitis; I10 Essential (primary) hypertension; Z90.49 Acquired absence of other specified parts of digestive tract; Z95.0 Presence of cardiac pacemaker; Z90.710 Acquired absence of both cervix and uterus; Z88.8 Allergy status to other drugs, medicaments and biological substances; Z79.899 Other long term (current) drug therapy; Z86.711 Personal history of pulmonary embolism; Z87.891 Personal history of nicotine dependence ==